=== PATIENT | female | born 1985 | race Caucasian/White ===

== ENCOUNTER → 2019-09-12 | Outpatient (CLI) | payer OTHER | END | disposition home or self-care (01) | LOC: CFH 13:56 | PROVIDERS: ATTEND Internal Medicine Endocrinology, Diabetes & Metabolism | DX: R92.2 Inconclusive mammogram (principal); C50.812 Malignant neoplasm of overlapping sites of left female breast | CPT/HCPCS: 76642; 77066; G0279 ==